=== PATIENT | male | born 1940 | race Caucasian/White ===

== ENCOUNTER 2016-10-28 05:44 | Emergency (ER) | payer OTHER ==
--- NOTE | 2016-10-28 06:24 | DIAGNOSTIC IMAGING REPORT ---
PROCEDURE: XR CHEST 1 VIEW INDICATION: CHEST PAIN TECHNIQUE: Portable AP view 06:18 a.m. COMPARISON: None. FINDINGS: Small left basilar scars/atelectasis. Heart and mediastinum are normal. Thorax is normal. IMPRESSION: 1. Small left basilar scarring/atelectasis.
--- NOTE | 2016-10-28 08:18 | ED ORDER SUMMARY ---
..... Patient: DINAH ACOSTA OrderSheet [facility] VisitID: [id number] [place] [address] 75y, M Registration Date/Time: 10/28/2016 ORDER SHEET Weight: 101.1 kg (stated) Allergies: No Known Drug Allergy GENERAL ORDERS: Chest 1V Urgent (06:11 10/28/2016 Hawk Santos) (Ack 6:17 SRedmond) (6:18 JDeDanettea R.N.) Cardiac Panel Stat (06:11 10/28/2016 Hawk Santos) (Ack 6:17 SRedmond) (6:18 JJennifera R.N.) PT with INR Urgent (06:39 10/28/2016 Hawk Santos) (6:41 TLewis R.N.) PTT Urgent (06:39 10/28/2016 Hawk Santos) (6:41 TLewis R.N.) MEDICATION ORDERS: IV FLUIDS: IV Saline Lock (06:11 10/28/2016 Hawk Santos) (6:13 JDeDanettea R.N.) ORDER SHEET NOTES: [Electronically signed by Jose Arrington Dr. (08:19 10/28/2016)] [Electronically signed by Boris Ruffin R.N. (08:39 10/28/2016)] [Electronically locked/signed by Boris Ruffin R.N. (08:39 10/28/2016)]
--- NOTE | 2016-10-28 08:18 | ED CLINICAL REPORT ---
Clinical Report - Physicians/Mid Levels [facility] [address] [place] [place] [address] 10/28/2016 5:46 Patient: DINAH ACOSTA Time Seen: 06:00; initial patient contact. Arrived- By private vehicle. Historian- patient. HISTORY OF PRESENT ILLNESS Chief Complaint: CHEST PAIN. At its maximum, severity described as mild. When seen in the E.D., it was gone. This started just prior to arrival and is now gone. Onset during rest. It is described as sharp and it is described as located in the central chest area. No radiation. No nausea, vomiting, difficulty breathing or diaphoresis. Similar symptoms previously: None. Recent medical care: Not recently seen/assessed. REVIEW OF SYSTEMS No fever, chills, cough, pedal edema or calf pain. All systems otherwise negative, except as recorded above. PAST HISTORY DM HLD A fib HTN. Medications: Simvastatin Oral (Tablet 10 mg) 1 tablet, daily. Celecoxib Oral (Capsule 200 mg) 1 capsule, daily. Lumigan Ophthalmic (Solution 0.01 %). Chlorthalidone Oral (Tablet 25 mg) 1 tablet, daily. MetFORMIN HCl Oral (Tablet 500 mg) 1 tablet, daily. Metoprolol Succinate ER Oral (Tablet Extended Release 24 Hour 200 mg) 1 tablet, daily. Lisinopril Oral (Tablet 20 mg) 1 tablet, daily. Warfarin Sodium Oral (Tablet 2.5 mg) 1 tablet, daily. Allergies: No Known Drug Allergy. SOCIAL HISTORY Never smoker. Occasional alcohol use. No drug use. ADDITIONAL NOTES The nursing notes have been reviewed. PHYSICAL EXAM Vital Signs: 10/28/2016 05:49 BP: 173/84. HR: 77. RR: 16. O2 saturation: 100%. Temp: 97.4 F. Pain level now: 0/10. Have been reviewed. Hypertensive. Heart rate normal. Respiratory rate normal. Temperature normal. Oxygen saturation normal. Appearance: Alert. Oriented X3. No acute distress. Eyes: Eyes normal inspection. ENT: Pharynx normal. CVS: Abnormal rhythm. Heart sounds normal. Rate normal. Respiratory: No respiratory distress. Breath sounds normal. Chest nontender. Abdomen: Soft and nontender. Bowel sounds normal. Skin: Skin warm and dry. Normal skin color. Extremities: No calf tenderness. No lower extremity edema. Neuro: Oriented X 3. LABS, X-RAYS, AND EKG EKG: EKG time: (0554). No acute ischemia. Atrial fibrillation (narrow-complex) (ventricular rate 69). Normal QRS complex. Normal axis. Normal ST and T waves, QT and QTc. Prior EKG unavailable. The study has been interpreted contemporaneously by me. The study has been independently viewed by me. The EKG appears to be a good tracing. I agree with and confirm the computer reading of the EKG. Interpretation time: 0600. Chest X-ray: (1. Small left basilar scarring/atelectasis.). Views: AP. Technique: good. The X-rays were independently viewed by me, interpreted by the radiologist and discussed with the radiologist. Prior films were not available for comparison. Laboratory Tests: CBC w Diff: (KEE: 10/28/2016 06:00) ( MsgRcvd 10/28/2016 06:52) Final results Test Result Flag Units (Reference) WHITE BLOOD COUNT 6.0 K/uL (4.5-11.5) RED BLOOD COUNT 5.54 M/uL (4.50-5.90) HEMOGLOBIN 17.5 gm/dL (13.5-17.5) HEMATOCRIT 52.9 % (41.0-53.0) MEAN CELL VOLUME 95 fL (80-100) MEAN CORPUSCULAR HGB 32 pg (26-34) MEAN CORPUSCULAR HGB CONC 33 g/dL (31-37) RED CELL DISTRIBUTION WIDTH 13.5 % (11.6-14.8) PLATELET COUNT 248 K/uL (150-400) NEUTROPHIL % 59.4 % (50-75) LYMPH % 27.3 % (25-40) MONO % 10.8 % (3-14) EOSINOPHIL % 1.8 % (0-4) BASOPHIL % 0.7 % (0-2) PT with INR: (KEE: 10/28/2016 06:00) ( MsgRcvd 10/28/2016 07:04) Final results Test Result Flag Units (Reference) INR 2.0 H (0.8-1.2) Low Intensity Therapy: INR 1.5-2.0 PT range 18.5-23.1Mod.Intensity Therapy: INR 2.0-3.0 PT range 23.1-31.5High Intensity Therapy: INR 2.5-3.5 PT range 27.4-35.5High Intensity Therapy 2: INR 3.0-4.0 PT range 31.5-39.3 APTT 40 H SECONDS (24-34) CHEM 13 PANEL: (KEE: 10/28/2016 06:00) ( MsgRcvd 10/28/2016 07:25) Final results Test Result Flag Units (Reference) GLUCOSE 116 H mg/dL (70-110) BUN 19 H mg/dL (7-18) CREATININE 1.2 mg/dL (0.6-1.3) Estimated GFR >60 mL/min Estimated GFR- >60 mL/min Note: Persistent reduction over 3 months in eGFR<60 mL/min/1.73 m2 defines CKD. Patients with eGFR values>=60 mL/min/1.73 m2 may also have CKD if evidence ofpersistent proteinuria. Additional information may be foundat www.kidney.org. SODIUM 141 mmol/L (136-145) POTASSIUM 3.4 L mmol/L (3.5-5.1) CHLORIDE 101 mmol/L (98-107) CARBON DIOXIDE 28 mmol/L (21-32) CALCIUM 9.3 mg/dL (8.5-10.1) TOTAL PROTEIN 8.0 g/dL (6.4-8.2) ALBUMIN 4.2 g/dL (3.3-5.0) BILIRUBIN, TOTAL 0.9 mg/dL (0.0-1.0) ALKALINE PHOSPHATASE 62 U/L (46-116) AST (SGOT) 25 U/L (15-37) ALT (SGPT) 31 U/L (12-78) MAGNESIUM 2.0 mg/dL (1.8-2.4) CPK 93 U/L (24-260) TROPONIN I <0.05 ng/mL (0.00-1.5) TROPONIN REFERENCE RANGE:<0.1 NEGATIVE0.1-1.5 INDETERMINANT>1.5 POSITIVE . PROGRESS AND PROCEDURES Disposition: Discharged home in good condition. Condition: good. CLINICAL IMPRESSION Atypical chest pain .12 lead EKG performed. INSTRUCTIONS Rest at home today. Your Current Medications: CONTINUE TAKING THE FOLLOWING MEDICATIONS: Celecoxib Oral : Capsule 200 mg, 1 capsule daily. Chlorthalidone Oral : Tablet 25 mg, 1 tablet daily. Lisinopril Oral : Tablet 20 mg, 1 tablet daily. Lumigan Ophthalmic : Solution 0.01 %. MetFORMIN HCl Oral : Tablet 500 mg, 1 tablet daily. Metoprolol Succinate ER Oral : Tablet Extended Release 24 Hour 200 mg, 1 tablet daily. Simvastatin Oral : Tablet 10 mg, 1 tablet daily. Warfarin Sodium Oral : Tablet 2.5 mg, 1 tablet daily. Follow-up: Follow up with your doctor in about two days. Call for an appointment. Blood pressure screening was not performed during this visit because the patient has an active diagnosis of hypertension. (Electronically signed by Jose Arrington Dr. 10/28/2016 8:19)
--- NOTE | 2016-10-28 08:18 | ED ORDER SUMMARY ---
..... Patient: DINAH ACOSTA OrderSheet [facility] VisitID: [id number] [place] [address] 75y, M Registration Date/Time: 10/28/2016 ORDER SHEET Weight: 101.1 kg (stated) Allergies: No Known Drug Allergy GENERAL ORDERS: Chest 1V Urgent (06:11 10/28/2016 Hawk Santos) (Ack 6:17 SRedmond) (6:18 JDeDanettea R.N.) Cardiac Panel Stat (06:11 10/28/2016 Hawk Santos) (Ack 6:17 SRedmond) (6:18 JJennifera R.N.) PT with INR Urgent (06:39 10/28/2016 Hawk Santos) (6:41 TLewis R.N.) PTT Urgent (06:39 10/28/2016 Hawk Santos) (6:41 TLewis R.N.) MEDICATION ORDERS: IV FLUIDS: IV Saline Lock (06:11 10/28/2016 Hawk Santos) (6:13 JDeDanettea R.N.) ORDER SHEET NOTES: [Electronically signed by Jose Arrington Dr. (08:19 10/28/2016)] [Electronically signed by Boris Ruffin R.N. (08:39 10/28/2016)] [Electronically locked/signed by Boris Ruffin R.N. (08:39 10/28/2016)]
--- NOTE | 2016-10-28 08:18 | ED NURSING NOTES ---
Clinical Report - Nurses [facility] [address] [place] [address] 10/28/2016 5:46 Patient: DINAH ACOSTA TRIAGE Triage time 05:49. Acuity: LEVEL 2. Chief Complaint: CHEST PAIN and DISCOMFORT and (Started this morning, pain comes and goes. Ate homemade tacos last night and "a lot of snacks." No radiation of pain.). Alert. No acute distress. SEPSIS SCREEN: Sepsis Screen: negative. Negative (no infection suspected/documented). --05:57 Francisco De Leon R.N. 05:49 10/28/16. BP: 173/84 (regular adult cuff) taken on the left arm, via an automated monitor, while lying. HR: 77 (irregular and normal rate). RR: 16 (regular, unlabored and normal). O2 saturation: 100% on room air. Temp: 97.4 F (oral). Pain level now: 0/10. --05:57 Francisco De Leon R.N. Weight: 101.1 kg stated. Height/Length: 71 inches Per Patient. BMI: 31.1. --05:55 Francisco De Leon R.N. Medications Warfarin Sodium Oral (Tablet 2.5 mg) 1 tablet, daily. --05:52 Francisco De Leon R.N. Lisinopril Oral (Tablet 20 mg) 1 tablet, daily. --05:53 Francisco De Leon R.N. Metoprolol Succinate ER Oral (Tablet Extended Release 24 Hour 200 mg) 1 tablet, daily. --05:53 Francisco De Leon R.N. MetFORMIN HCl Oral (Tablet 500 mg) 1 tablet, daily. --05:54 Francisco De Leon R.N. Chlorthalidone Oral (Tablet 25 mg) 1 tablet, daily. --05:54 Francisco De Leon R.N. Lumigan Ophthalmic (Solution 0.01 %). --05:54 Francisco De Leon R.N. Celecoxib Oral (Capsule 200 mg) 1 capsule, daily. --05:54 Francisco De Leon R.N. Simvastatin Oral (Tablet 10 mg) 1 tablet, daily. --05:55 Francisco De Leon R.N. The following entry was struck and corrected by Francisco De Leon R.N., 05:55 (10/28/16) Reason for correction - other(correction). <<STRICKEN ENTRY-- Warfarin Sodium Oral. --05:52 Francisco De Leon R.N. --END STRIKE>>. Medication/allergy information source: the patient. --05:57 Francisco De Leon R.N. Allergies No Known Drug Allergy. --05:55 Francisco De Leon R.N. History Arrived by private vehicle. Historian: patient. Primary physician (Dr. Banks). This started just prior to arrival. He has had a cough (Chronic). No difficulty breathing, nausea, vomiting, chills or fever. No sweating episodes, difficulty breathing or abdominal pain. Treatment [address] RESEARCH ENGINEER: None. PAST MEDICAL HX: Hypertension. Intermittent atrial fibrillation. Immunizations not up to date. SOCIAL HX: Never smoker. Occasional alcohol use. No drug use. He has traveled outside the [place] in the last 4 weeks. The patient was not exposed to MRSA. (Traveled to [place].). ABUSE ASSESSMENT: Abuse assessment: The patient was asked "Do you feel safe in your home?" and "Has anyone hurt you or threatened to hurt you?". No report of abuse. SELF HARM ASSESSMENT: A self harm assessment was performed. The patient answered "no" to the question "Do you have thoughts of harming or killing yourself?" and "Have you recently had thoughts about harming or killing others?". FALL RISK ASSESSMENT: Fall risk assessment completed. No fall risk identified. NUTRITIONAL RISK ASSESSMENT: The nutritional risk assessment revealed no deficiencies. LEARNING NEEDS ASSESSMENT: The learning needs assessment revealed no barriers. FUNCTIONAL ASSESSMENT: Functional assessment performed: independent with the activities of daily living; wears glasses- this visual impairment is an ongoing problem; hearing impairment present- this hearing impairment is an ongoing problem. SKIN INTEGRITY ASSESSMENT: Skin integrity risk assessment completed. No skin integrity risk identified. --05:57 Francisco De Leon R.N. PROBLEMS: Diabetes Mellitus. --05:55 Francisco De Leon R.N. Assessment GENERAL / NEURO / PSYCH: Alert. Oriented X 4. Appears in no acute distress. [place] Coma Scale: 15- eyes open spontaneously (4); best verbal response- oriented x 4 (5); best motor response- obeys commands (6). Patient appears calm and cooperative. RESPIRATORY: Respirations not labored. SKIN: Skin is warm and dry. --05:57 Francisco De Leon R.N. Interventions ID band on patient. EKG time: (553). EKG was ordered, performed by a tech and shown to the ED physician. To treatment room. --05:57 Francisco De Leon R.N. PHYSICAL ASSESSMENT Ambulatory to room. GENERAL / NEURO / PSYCH: Alert. Oriented X 4. Appears in no acute distress. RESPIRATORY: No respiratory distress. Respirations not labored. Chest nontender. Breath sounds within normal limits. CVS: No carotid bruit. Cardiac rhythm: atrial fibrillation. No rapid ventricular response. No prominent aortic pulsations. ( No renal or iliac bruits noted.). Pulses: right radial 1+ and left radial 1+. Capillary refill less than 2 seconds. GI / : Obesity. Abdomen soft and nontender. Bowel sounds within normal limits. SKIN: Skin is warm and dry. --06:04 Francisco De Leon R.N. NURSING PROGRESS NOTES The initial plan of care for this patient has been created This plan of care was discussed with the patient. hearing therapy director, pulse oximeter and NIBP monitor placed on patient; repairer engine production- Lead II. Patient gowned. Reassurance given to the patient. Two patient identifiers checked. Call light placed in reach. Side rails up x 2. Bed placed in lowest position. Brakes of bed on. Patient ready for evaluation- ED physician notified. --05:57 Francisco De Leon R.N. 05:57 10/28/2016 Site #1 started via IV in the right antecubital space with an 20g angiocath, with aseptic technique and good blood return; one attempt. Blood drawn: rainbow set. Labeled in the presence of the patient and sent to the lab. Saline lock flushed with 10 mL saline. --05:58 Francisco De Leon R.N. Patient ID band checked for patient name and birthdate: patient confirmed. Instructions provided to collect clean catch urine and patient verbalized understanding. Clean catch urine collected with return of harrison-colored clear urine; sample sent to lab for urinalysis. Specimen labeled in the presence of the patient. --05:58 Francisco De Leon R.N. 06:02 10/28/16. BP: 150/89 (regular adult cuff) taken on the right arm, via an automated monitor, while lying. HR: 68 (irregular and normal rate). RR: 16 (regular, unlabored and normal). O2 saturation: 100% on room air. --06:02 Francisco De Leon R.N. Cardiac rhythm: atrial fibrillation. The patient is calm and resting quietly. RESPIRATORY: No respiratory distress. SKIN: Skin is warm and dry. --06:50 Francisco De Leon R.N. 06:49 10/28/16. BP: 123/65 (regular adult cuff) taken on the right arm, via an automated monitor, while lying. HR: 68 (irregular and normal rate). RR: 14 (regular, unlabored and normal). O2 saturation: 96% on room air. --06:50 Francisco De Leon R.N. Care transferred and report given (RAZ Escalante). --07:02 Francisco De Leon R.N. 07:04 10/28/16. Care transferred and report received. --07:04 Boris Ruffin R.N. 07:32 10/28/16. Patient informed about reason for wait and about plan of care. --07:32 Boris Ruffin R.N. 07:33 10/28/16. --07:33 Boris Ruffin R.N. 07:32 10/28/16. BP: 122/75. HR: 64. RR: 14. O2 saturation: 100% on room air. Temp: 98.2 F (oral). Pain level now: 0/10. --07:33 Boris Ruffin R.N. 07:33 10/28/16. Cardiac rhythm: atrial fibrillation; (61). --07:33 Boris Ruffin R.N. DISPOSITION / DISCHARGE 08:34 10/28/16. BP: 132/82. HR: 71 (irregular). RR: 18. O2 saturation: 99% on room air. Temp: 98 F (oral). Pain level now: 0/10. --08:35 Boris Ruffin R.N. 08:30 10/28/2016 Site #1 removed upon discharge. Catheter intact. Bandage applied. --08:35 Boris Ruffin R.N. 08:34 10/28/16. Cardiac rhythm: atrial fibrillation. Condition at departure: improved. The goals identified in the patient's plan of care were met. No learning barriers present. Discharge instructions provided and reviewed with the patient. Reviewed warnings. Reviewed medication(s). Treatments reviewed. Patient verbalized understanding. Written instructions provided in Italian. The patient was discharged by the physician. He was discharged home and unaccompanied at time of discharge. He left the Emergency Department ambulatory and via private vehicle. Patient driving. FALL RISK ASSESSMENT: Fall risk assessment completed. No fall risk identified. --08:35 Boris Ruffin R.N. 08:35 10/28/16. Departure time: 08:35. --08:35 Boris Ruffin R.N. Locked/Released at 10/28/2016 8:39 by Boris Ruffin R.N.
--- NOTE | 2016-10-28 08:39 | ED MED RECONCILIATION SUMMARY ---
Patient: DINAH ACOSTA Medication Reconciliation Report [facility] VisitID: [id number] [address] [place] [address] 75y, M Registration Date/Time: 10/28/2016 Weight: 101.1 kg Height/Length: 71 in. BMI: 31.1 ALLERGIES: No Known Drug Allergy The patient's Home Medications are listed below: CONTINUE TAKING THE FOLLOWING MEDICATIONS: Celecoxib Oral (200 mg) 1 capsule, daily Chlorthalidone Oral (25 mg) 1 tablet, daily Lisinopril Oral (20 mg) 1 tablet, daily Lumigan Ophthalmic (0.01 %) MetFORMIN HCl Oral (500 mg) 1 tablet, daily Metoprolol Succinate ER Oral (200 mg) 1 tablet, daily Simvastatin Oral (10 mg) 1 tablet, daily Warfarin Sodium Oral (2.5 mg) 1 tablet, daily The source(s) of the original Home Medication information: patient The following Medications were given to the patient in the Emergency Department: None. The following Medications were prescribed to the patient: None.
--- NOTE | 2016-10-28 08:39 | ED MAR SUMMARY ---
..... Medication Administration Record [facility] [address], [place] [id number] Patient: DINAH ACOSTA Visit ID: [id number] 75y, M Weight: 101.1 kg Height/Length: 71 in BMI: 31.1 ALLERGIES: No Known Drug Allergy
--- NOTE | 2016-10-28 08:39 | ED DISCHARGE INSTRUCTIONS ---
Patient: DINAH ACOSTA General Instructions [facility] VisitID: [id number] [place] [address] 75y, M Registration Date/Time: 10/28/2016 Atypical chest pain .12 lead EKG performed. INSTRUCTIONS Rest at home today. Your Current Medications: CONTINUE TAKING THE FOLLOWING MEDICATIONS: Celecoxib Oral : Capsule 200 mg, 1 capsule daily. Chlorthalidone Oral : Tablet 25 mg, 1 tablet daily. Lisinopril Oral : Tablet 20 mg, 1 tablet daily. Lumigan Ophthalmic : Solution 0.01 %. MetFORMIN HCl Oral : Tablet 500 mg, 1 tablet daily. Metoprolol Succinate ER Oral : Tablet Extended Release 24 Hour 200 mg, 1 tablet daily. Simvastatin Oral : Tablet 10 mg, 1 tablet daily. Warfarin Sodium Oral : Tablet 2.5 mg, 1 tablet daily. Follow-up: Follow up with your doctor in about two days. Call for an appointment. Blood pressure screening was not performed during this visit because the patient has an active diagnosis of hypertension. ADDITIONAL INFORMATION Chest Pain, Noncardiac Based on your visit today, the exact cause of your chest pain is not certain. Your condition does not seem serious and your pain does not appear to be coming from your heart. However, sometimes the signs of a serious problem take more time to appear. Therefore, please watch for the warning signs listed below. Home Care: Rest today and avoid strenuous activity. Take any prescribed medicine as directed. Follow Up with your doctor or this facility as instructed or if you do not start to feel better within 24 hours. Get Prompt Medical Attention if any of the following occur: A change in the type of pain: if it feels different, becomes more severe, lasts longer, or begins to spread into your shoulder, arm, neck, jaw or back Shortness of breath or increased pain with breathing Cough with dark colored sputum (phlegm) or blood Weakness, dizziness, or fainting Fever of 100.4F (38C) or higher, or as directed by your healthcare provider Swelling, pain or redness in one leg You have been given the following additional information: Chest Pain, Noncardiac Rest at home today. (Electronically signed by Jose Arrington Dr. 10/28/2016 8:19)
--- NOTE | 2016-10-28 08:39 | ED MED RECONCILIATION SUMMARY ---
Patient: DINAH ACOSTA Medication Reconciliation Report [facility] VisitID: [id number] [address] [place] [address] 75y, M Registration Date/Time: 10/28/2016 Weight: 101.1 kg Height/Length: 71 in. BMI: 31.1 ALLERGIES: No Known Drug Allergy The patient's Home Medications are listed below: CONTINUE TAKING THE FOLLOWING MEDICATIONS: Celecoxib Oral (200 mg) 1 capsule, daily Chlorthalidone Oral (25 mg) 1 tablet, daily Lisinopril Oral (20 mg) 1 tablet, daily Lumigan Ophthalmic (0.01 %) MetFORMIN HCl Oral (500 mg) 1 tablet, daily Metoprolol Succinate ER Oral (200 mg) 1 tablet, daily Simvastatin Oral (10 mg) 1 tablet, daily Warfarin Sodium Oral (2.5 mg) 1 tablet, daily The source(s) of the original Home Medication information: patient The following Medications were given to the patient in the Emergency Department: None. The following Medications were prescribed to the patient: None.
--- NOTE | 2016-10-28 08:39 | ED DISCHARGE INSTRUCTIONS ---
Patient: DINAH ACOSTA General Instructions [facility] VisitID: [id number] [place] [address] 75y, M Registration Date/Time: 10/28/2016 Atypical chest pain .12 lead EKG performed. INSTRUCTIONS Rest at home today. Your Current Medications: CONTINUE TAKING THE FOLLOWING MEDICATIONS: Celecoxib Oral : Capsule 200 mg, 1 capsule daily. Chlorthalidone Oral : Tablet 25 mg, 1 tablet daily. Lisinopril Oral : Tablet 20 mg, 1 tablet daily. Lumigan Ophthalmic : Solution 0.01 %. MetFORMIN HCl Oral : Tablet 500 mg, 1 tablet daily. Metoprolol Succinate ER Oral : Tablet Extended Release 24 Hour 200 mg, 1 tablet daily. Simvastatin Oral : Tablet 10 mg, 1 tablet daily. Warfarin Sodium Oral : Tablet 2.5 mg, 1 tablet daily. Follow-up: Follow up with your doctor in about two days. Call for an appointment. Blood pressure screening was not performed during this visit because the patient has an active diagnosis of hypertension. ADDITIONAL INFORMATION Chest Pain, Noncardiac Based on your visit today, the exact cause of your chest pain is not certain. Your condition does not seem serious and your pain does not appear to be coming from your heart. However, sometimes the signs of a serious problem take more time to appear. Therefore, please watch for the warning signs listed below. Home Care: Rest today and avoid strenuous activity. Take any prescribed medicine as directed. Follow Up with your doctor or this facility as instructed or if you do not start to feel better within 24 hours. Get Prompt Medical Attention if any of the following occur: A change in the type of pain: if it feels different, becomes more severe, lasts longer, or begins to spread into your shoulder, arm, neck, jaw or back Shortness of breath or increased pain with breathing Cough with dark colored sputum (phlegm) or blood Weakness, dizziness, or fainting Fever of 100.4F (38C) or higher, or as directed by your healthcare provider Swelling, pain or redness in one leg You have been given the following additional information: Chest Pain, Noncardiac Rest at home today. (Electronically signed by Jose Arrington Dr. 10/28/2016 8:19)
--- NOTE | 2016-10-28 08:39 | ED MAR SUMMARY ---
..... Medication Administration Record [facility] [address], [place] [id number] Patient: DINAH ACOSTA Visit ID: [id number] 75y, M Weight: 101.1 kg Height/Length: 71 in BMI: 31.1 ALLERGIES: No Known Drug Allergy
== END 2016-10-28 08:35 | disposition home or self-care (01) ==
LOC: ED SRH 05:44
DX: R07.89 Other chest pain (principal); E11.9 Type 2 diabetes mellitus without complications; I10 Essential (primary) hypertension; Z79.84 Long term (current) use of oral hypoglycemic drugs; Z79.899 Other long term (current) drug therapy; Z79.01 Long term (current) use of anticoagulants
CPT/HCPCS: 90100; 90616; 92610; 92720; 94001; 94060; 95059

== ENCOUNTER → 2016-12-13 | Outpatient (CLI) | payer OTHER ==
--- NOTE | 2016-12-13 14:31 | DIAGNOSTIC IMAGING REPORT ---
PROCEDURE: XR ANKLE 3 OR 4 VIEWS - LEFT INDICATION: ANKLE PAIN TECHNIQUE: Four views. COMPARISON: None. 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 There is also asymmetry of the ankle mortise. There is also fragmentation of the anterior talus. IMPRESSION: 1. Talocalcaneal coalition.
== END ==
LOC: XR SRH 12:03
DX: Q66.89 Other specified congenital deformities of feet (principal)